=== PATIENT | male | born 1975 | race Caucasian/White ===

== ENCOUNTER 2019-03-31 16:33 | Emergency (ER) | payer OTHER ==
[~2019-03-31] VITALS: Ht 175.3 cm; Wt 84.1 kg
[2019-03-31 16:39] VITALS: BP 158/97; TEMP 97.6
[2019-03-31] MEDS ORDERED: DESYREL DIVIDO300 MG PO (17:10)
[2019-03-31] MEDS ORDERED: PRILOSEC10 MG PO (17:10)
[2019-03-31] MEDS ORDERED: NORCO 325 MG-51 TAB PO (17:35)
[2019-03-31 17:46] VITALS: PULSE 90
== END 2019-03-31 17:45 | disposition home or self-care (01) ==
LOC: COL.ER 16:33
DX: S46.112A Strain of muscle, fascia and tendon of long head of biceps, left arm, initial encounter (principal); X50.1XXA Overexertion from prolonged static or awkward postures, initial encounter; Y92.009 Unspecified place in unspecified non-institutional (private) residence as the place of occurrence of the external cause
CPT/HCPCS: J3010